=== PATIENT | female | born 1985 ===

== ENCOUNTER 2016-10-02 15:21 | Inpatient (IN) | payer MEDICAID ==
[2016-10-02 15:46] VITALS: BMI 38.7
--- NOTE | 2016-10-02 15:58 | OBHP ---
Datetime: 10/02/2016 15:35 IP Adm Impression: Term, intrauterine ; Active labor IP Admit Plan: Admit to unit Admit Comment, IP Provider: IUP at 40w oD (EDC October 02) c/o CTX since this morning. Had SROM when being wheeled to room 519. No VB. +FM care: [facility] MAGED/GBS+/ Hx UTI chart rev'd PMH: denies PSH: denies NKA POBGYNH: G [id number] ( 2) A: Term preg secodn stage of labor GBS+ PLAN: delivered when she took off her pants, head was already delivered Pelvic Type - PN: Adequate Extremities - PN: Normal Abdomen - PN: Normal Back - PN: Normal Breast - PN: Not Done Lungs - PN: Normal Heart - PN: Normal Thyroid - PN: Normal Neurologic - PN: Normal HEENT - PN: Normal General - PN: Abnormal Comments, ACOG Physical Exam: ROS: Geneeral no weakness; no fatigue HEENT: No WILL; no visual dist Resp: No SOB; no Cough CV: NO CP; no palpitations GI: No N/V/D : No F/U/D MS: NO joint pain PE done after delivery....she was clothes and brought to 519. When she took off her paints, he ad was already in IP Hx Assessment: The History has been Reviewed and is Current IP Chief Complaint: Uterine contractions Genitourinary Exam: Normal DTRs - PN: Normal
[2016-10-02] MEDS: Oxycodone/Acetaminophen 5/325 mg Tab PO PRN ×2 (16:20→21:18)
[2016-10-02 17:05] VITALS: BP 108/61; PULSE 91; RESP 18; TEMP 98.3; O2SAT 100
[2016-10-02 17:13] LABS: HEMATOCRIT 38.1 % (34.0-47.0); MEAN CORPUSCULAR HEMOGLOBIN 27.3 pg (27.0-31.0); MEAN CORPUSCULAR HGB CONC 33.3 g/dL (33.0-37.0); RED CELL DISTRIBUTION WIDTH 15.3 % (11.5-14.5); WHITE BLOOD COUNT 10.5 K/uL (4.8-10.8)
--- NOTE | 2016-10-02 19:35 | OBADHP ---
Datetime: 10/02/2016 15:35 Admit Comment, IP Provider: IUP at 40w oD (EDC October 02) c/o CTX since this morning. Had SROM when being wheeled to room 519. No VB. +FM care: [facility] MAGED/GBS+/ Hx UTI chart rev'd PMH: denies PSH: denies NKA POBGYNH: G [id number] ( 2) A: Term preg secodn stage of labor GBS+ PLAN: delivered when she took off her pants, head was already delivered Pelvic Type - PN: Adequate Extremities - PN: Normal Abdomen - PN: Normal Back - PN: Normal Breast - PN: Not Done Lungs - PN: Normal Heart - PN: Normal Thyroid - PN: Normal Neurologic - PN: Normal HEENT - PN: Normal General - PN: Abnormal Comments, ACOG Physical Exam: ROS: Geneeral no weakness; no fatigue HEENT: No WILL; no visual dist Resp: No SOB; no Cough CV: NO CP; no palpitations GI: No N/V/D : No F/U/D MS: NO joint pain PE done after delivery....she was clothes and brought to RM 519. When she took off her paints, he ad was already in IP Hx Assessment: The History has been Reviewed and is Current IP Chief Complaint: Uterine contractions Genitourinary Exam: Normal DTRs - PN: Normal IP Adm Impression: Term, intrauterine ; Active labor IP Admit Plan: Admit to unit
--- NOTE | 2016-10-02 19:40 | OBDS ---
DELIVERY PERSONNEL Delivery Doctor: Renetta Spring DO Cream Ripener: Martha Hopper RN MATERNAL INFORMATION Delivery Anesthesia: None Medications in Delivery: Pitocin 20 units at 999ml/hr Estimated Blood Loss (ml): 200 Placenta Cultured: No Maternal Complications: Precipitous Labor (<3hrs) RN Comments: Patient presented to L_D once her pants were off, head of baby was at the perineum. Provider Comments: She took off her pants, head was already at perinuem. One loose nuchal cord and reduced. delivered with problems. Placenta deliveredintact spontaneously. EBL 200cc LABOR SUMMARY EDC: 10/02/2016 00:00 No. Babies in Womb: 1 Attempted: No Labor Anesthesia: None LABOR INFORMATION Reason for Induction: Not Applicable Onset of Labor: 10/02/2016 13:00 Complete Dilatation: 10/02/2016 15:28 Oxytocin: N/A Group B Beta Strep: Positive Steroids Given: None Reason Steroids Not Administered: Not Applicable MEMBRANES Membranes Rupture Method: Spontaneous Amniotic Fluid Color: Clear Amniotic Fluid Amount: Moderate Amniotic Fluid Odor: Normal STAGES OF LABOR Stage 1 hrs: 2 Stage 1 min: 28 Stage 2 hrs: 0 Stage 2 min: 0 Stage 3 hrs: 0 Stage 3 min: 7 Total Time in Labor hrs: 2 Total Time in Labor min: 35 VAGINAL DELIVERY Episiotomy: None Laceration Extension: N/A Laceration Type: None Laceration Repair: No Initial Vag Sponge Count: 5 Final Vag Sponge Count: 5 Initial Vag Sharps Count: 0 Final Vag Sharps Count: 0 Sponge Count Correct: Yes Sharps Count Correct: N/A Count Comment: 5 lap pads BABY A INFORMATION Infant Delivery Date/Time: 10/02/2016 15:28 Method of Delivery: Vaginal Born in Route : No : N/A Forceps: N/A Vacuum Extraction: N/A Shoulder Dystocia : No SHOULDER DYSTOCIA BABY A Infant Delivery Date/Time: 10/02/2016 15:28 PRESENTATION/POSITION BABY A Presentation: Cephalic Cephalic Presentation: Vertex Breech Presentation: N/A PLACENTA INFORMATION BABY A Placenta Delivery Time : 10/02/2016 15:35 Placenta Method of Delivery: Spontaneous Placenta Status: Delivered SCORES BABY A Heart Rate 1 min: >100 bpm Resp Effort 1 min: Good Cry Reflex Irritability 1 min: Cough or Sneeze or Pulls Away Muscle Tone 1 min: Active Motion Color 1 min: Body [place], Extremities Blue Resuscitation Effort 1 min: Tactile Stimulation SCORE 1 MIN: 9 Heart Rate 5 min: >100 bpm Resp Effort 5 min: Good Cry Reflex Irritability 5 min: Cough or Sneeze or Pulls Away Muscle Tone 5 min: Active Motion Color 5 min: Body [place], Extremities Blue Resuscitation Effort 5 min: Tactile Stimulation SCORE 5 MIN: 9 INFORMATION BABY A Gestational Age at Delivery: 40.0 Gestational Status: Term Outcome : Liveborn Infant Condition : Stable Infant Sex: Male IDENTIFICATION/MEDS BABY A ID Band Number: [id number] ID Band Location: Left Leg; Left Arm WEIGHT/LENGTH BABY A Birthweight (gms): 3340 Weight (lb): 7 Weight (oz): 6 CORD INFORMATION BABY A No. Cord Vessels: 3 Nuchal Cord : Around Neck x1, Loose Cord Blood Taken: No Infant Suction: None ASSESSMENT BABY A Complications: None Physical Findings at Delivery: Within Normal Limits Infant Respirations: Appears Normal Demand Equipment Repairer/ALS Called : No Infant Care By: Zoila Mahoney RN/Bia Transferred To: Remains with Mother
[2016-10-03] MEDS ORDERED: Lansinoh for Breast Feeding Mothers TP ONE (02:35)
[2016-10-03 09:16] LABS: BASO % 0.3 % (0.0-2.0); EOS # 0.1 K/uL (0.0-0.7); HEMATOCRIT 32.3 % (34.0-47.0); LYMPH # 2.7 K/uL (1.0-4.3); LYMPH % 28.3 % (20.0-40.0); MEAN CELL VOLUME 81.9 fl (81.0-99.0); MEAN CORPUSCULAR HEMOGLOBIN 27.4 pg (27.0-31.0); MEAN CORPUSCULAR HGB CONC 33.5 g/dL (33.0-37.0); MONO # 0.5 K/uL (0.0-0.8); MONO % 5.1 % (0.0-10.0); NEUT # 6.3 K/uL (1.8-7.0); NEUT % 65.3 % (50.0-75.0); NRBC % 0.1 % (0.0-0.0); RED CELL DISTRIBUTION WIDTH 14.8 % (11.5-14.5); WHITE BLOOD COUNT 9.7 K/uL (4.8-10.8)
--- NOTE | 2016-10-03 09:59 | OBPPN ---
Datetime: 10/03/2016 05:57 PP Pain Prov: Within normal limits PP Nausea Prov: Denies PP Flatus Prov: Yes PP BM Prov: No PP Heart Prov: Normal PP Lungs Prov: Normal PP Abdomen/Uterus Prov: Normal PP Lochia Prov: Normal PP Extremities Prov: Normal PP Comments Phys Exam Prov: Fundus firm below umbilicus PP Impression Prov: Normal progression PP Plan Prov: Continue present management PP Progress Note Prov: 31 yo , seen and examined bedside. Patient denies any overnight events. She reports mild pelvic pain controlled w/ pain meds. OOB/Ambulating w/o dizziness. Breast/bottle f eeding. Tolerating PO diet well. Lochia is less than menses in volume. Voiding freely w/ few smal l blood clots noted. Reports passing gas but denies any bowl movment. Denies fevers, chills, n/v/d, CP/SOB, lightheadedness and calf pain. Assessment: 31 yo , s/p on 10/02/16 @ 15:28 tolerating pain w/ medication, tolerating o ral intake, adequate urine output, doing well on PPD#1 Plan: - Mild/mod pain PRN: Ibuprofen 600mg PO Q6 PRN pain -Encourage breast feeding and ambulation Ena Hayes PGY-1 Attending addendum: Patient seen and examined at bedside today, reviewed Dr. Hayes' note and agree with findings and p zuri. Patient is PPD#1 s/p . Doing well, f/u CBC. Discussed at length. Ambulating and tolerating po well. Desires circumcision, will get consent in afternoon after cleared by peds and >24HOL. Anticipate DC home tomorrow. IP PP Procedures: None Vital Signs Provider PP: Reviewed; Within Normal Limits
[2016-10-04] MEDS: Oxycodone/Acetaminophen 5/325 mg Tab PO PRN (00:32)
[2016-10-04] MEDS ORDERED: TDAP Vaccine 0.5 mL Syr IM ONE (08:00)
== END 2016-10-04 19:25 | disposition home or self-care (01) | DRG 775 ==
LOC: H.EROB2 15:21 → UNDOADMIN 15:31 → H.L&D 15:31 → H.OB/GYN 17:45 → H.L&D 17:45
PROVIDERS: ADMIT Obstetrics & Gynecology; ATTEND Obstetrics & Gynecology
PROC: 10E0XZZ Delivery of Products of Conception, External Approach (ICD-10-PCS; principal; 2016-10-02)
PROC: 4A1HXCZ Monitoring of Products of Conception, Cardiac Rate, External Approach (ICD-10-PCS; 2016-10-02)
DX: O62.3 Precipitate labor (principal); O69.81X0 Labor and delivery complicated by cord around neck, without compression, not applicable or unspecified; Z37.0 Single live birth; Z3A.40 40 weeks gestation of pregnancy

== ENCOUNTER 2017-10-24 19:50 | Emergency (ER) | payer OTHER ==
[2017-10-24 19:51] VITALS: BMI 38.7
[2017-10-24] MEDS ORDERED: Sodium Chloride 0.9% 500 ML IV ONE (20:37)
[2017-10-24 21:54] LABS: BASO % 0.4 % (0.0-2.0); EOS % 0.5 % (0.0-4.0); HEMOGLOBIN 12.4 g/dL (12.0-16.0); LYMPH # 2.4 K/uL (1.0-4.3); LYMPH % 28.4 % (20.0-40.0); MEAN CELL VOLUME 78.9 fl (81.0-99.0); MEAN CORPUSCULAR HEMOGLOBIN 25.5 pg (27.0-31.0); MEAN CORPUSCULAR HGB CONC 32.4 g/dL (33.0-37.0); MEAN PLATELET VOLUME 7.9 fl (7.2-11.7); MONO # 0.5 K/uL (0.0-0.8); MONO % 5.9 % (0.0-10.0); NEUT # 5.4 K/uL (1.8-7.0); NEUT % 64.8 % (50.0-75.0); RBC 4.86 Mil/uL (3.80-5.20); RED CELL DISTRIBUTION WIDTH 14.7 % (11.5-14.5); WHITE BLOOD COUNT 8.4 K/uL (4.8-10.8)
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
[2017-10-24 22:06] LABS: ALB/GLOB RATIO 1.1 (1.0-2.1); ALBUMIN 4.1 g/dL (3.5-5.0); ALT/SGPT 37 U/L (9-52); AST/SGOT 22 U/L (14-36); BLOOD UREA NITROGEN 10 mg/dl (7-17); CALCIUM 9.3 mg/dL (8.4-10.2); GFR AFRICAN-AMERICAN > 60; GFR NON-AFRICAN AMERICAN > 60
[2017-10-25 03:04] VITALS: BP 132/78; PULSE 92; RESP 16; TEMP 98.2
--- NOTE | 2017-10-25 10:13 | US ---
HISTORY: Positive test. Clinically presenting with lower abdominal pain. LMP 09/16/2017. COMPARISON: None available. TECHNIQUE: Standard protocol for this study/examination. FINDINGS: UTERUS: Measures 4.5 x 4.7 x 9.2 cm. Normal in size and appearance. No fibroid or other mass lesion seen. ENDOMETRIUM: Measures 11.6 mm in diameter. Unremarkable. CERVIX: No cervical abnormality identified. Closed cervix. 3.85 in length. Incidental finding: Nabothian cysts the largest measures 7 mm. RIGHT OVARY: Measures 1.5 x 2.4 x 2.6 cm. No solid mass. Normal flow. LEFT OVARY: Measures 2.3 x 2.4 x 3.2 cm. No solid mass. Normal flow. FREE FLUID: No significant free fluid noted. OTHER FINDINGS: None. IMPRESSION: No visible intrauterine or ectopic products of conception Additional benign and/or incidental findings described above. Concordant results (preliminary interpretation) provided by [facility]. Procedure Completed: 21:13 Preliminary ([facility]) Report: Dictated and Authenticated: 22:11 Final Interpretation: 10:11 October 25, 2017.
[2017-10-28 23:53] VITALS: O2SAT 100
== END 2017-10-24 23:10 | disposition home or self-care (01) ==
LOC: H.ER 19:50
DX: O20.9 Hemorrhage in early pregnancy, unspecified (principal); O26.891 Other specified pregnancy related conditions, first trimester; Z3A.01 Less than 8 weeks gestation of pregnancy
CPT/HCPCS: 76817; 80053; 81025; 84702; 85025; 86850; 86900; 96360; 99283; J7040